=== PATIENT | female | born 1980 | race Caucasian/White ===

== ENCOUNTER 2025-02-25 20:55 | Emergency (ER) | payer OTHER ==
[~2025-02-25] VITALS: Ht 162.6 cm; Wt 65.8 kg
[2025-02-25 23:46] VITALS: BP 135/89; TEMP 98; O2SAT 96
== END 2025-02-26 00:15 | disposition home or self-care (01) ==
LOC: ER 21:01
DX: T19.2XXA Foreign body in vulva and vagina, initial encounter (principal); E28.2 Polycystic ovarian syndrome; G43.909 Migraine, unspecified, not intractable, without status migrainosus; Z88.1 Allergy status to other antibiotic agents; Z60.2 Problems related to living alone; W44.8XXA Other foreign body entering into or through a natural orifice, initial encounter; Y93.89 Activity, other specified; Y92.89 Other specified places as the place of occurrence of the external cause; Y99.9 Unspecified external cause status